=== PATIENT | male | born 1975 | race Caucasian/White ===

== ENCOUNTER 2016-12-19 09:17 | Inpatient (IN) | payer OTHER ==
--- NOTE | ~2016-12-19 | DS ---
Unit #: [id number] #: [id number] Patient: TAL DECKER [id number] [address] [place], [place] [address] [id number] MR#: [id number] NAME: TAL DECKER ROOM: 461 Age: 41 Sex: M Admission Date: 12/19/2016 : 1975 Discharge Date: 12/21/2016 Attending Physician: Silver Villa III, M.D. Primary Care Physician: Kendal Primary Care Physician DISCHARGE SUMMARY ADMITTING DIAGNOSIS Diverticulitis with microperforation. DISCHARGE DIAGNOSIS Diverticulitis with microperforation. CONSULTATIONS None. PROCEDURE PERFORMED None. BRIEF HOSPITAL COURSE This is a 41-year-old gentleman who is otherwise healthy. Presented with severe abdominal pain. He was started on IV antibiotics for diagnosis of diverticulitis with microperforation that was noted on CT scan. He rapidly improved and had normalization of his white count. He was advanced to clears, then a full liquid diet, and then low residue without any increase in pain. He was felt to be safe for discharge. DISPOSITION Discharge to home. FOLLOWUP My office will contact him in a couple of weeks to schedule colonoscopy. DISCHARGE MEDICATIONS He has been given a script for: 1. Levaquin. 2. Flagyl. DISCHARGE INSTRUCTIONS He has been instructed to call me if he has any worsening of his symptoms. We also discussed possible laparoscopic (1) assisted colon resection down the road. Dictated by... Silver Villa III, M.D. VCL/demond TD: 12/22/2016 08:59 Unit #: [id number] #: [id number] Patient: TAL DECKER JOB #: [id number] DISCHARGE SUMMARY Page 1 of 1 X Silver Villa III, MD X DISCHARGE SUMMARY
--- NOTE | ~2016-12-19 | CT2 ---
[facility] A Service of [facility] RADIOLOGY TEXT RESULTS PATIENT: TAL DECKER LOCATION: [place] [address] : [birth year] UNIT #: [id number] AGE: [address]: Silver Villa III, MD SEX: M ORDER DR: [id number] [facility] [address]. [place], [place] [address] [id number] MR#: [id number] Acc #: [id number] NAME: TAL EDCKER : 1975 SEX: M STUDY DATE/TIME: 12/19/2016 12:36 UNIT: [place] ROOM: STUDY DESCRIPTION: CT Abd and Pelv W Cont Attending Physician: Sudhir Alegria M.D. Ordering Physician: Sudhir Alegria M.D. Primary Care Physician: Primary Care Physician No MEDICAL IMAGING REPORT This report is preliminary unless electronic signature is present EXAM CT abdomen and pelvis 12/19/2016 INDICATION Left lower quadrant abdominal pain that started 12/16/2016. TECHNIQUE Axial images were obtained through the abdomen and pelvis following IV contrast administration. Multiplanar reformats were obtained. No comparison. This CT examination was performed with one or more of the following radiation dose reduction techniques: automatic exposure control, adjustment of mA and/or kV according to patient size, and iterative reconstruction. FINDINGS ABDOMEN: Lung bases are clear except for minimal right lower lobe atelectasis. Gallbladder is unremarkable. There is no biliary obstruction. Solid organs are normal. The unopacified GI tract is normal. No free fluid is seen. There is no adenopathy. PELVIS: The appendix is surgically absent. The distal small bowel is normal. The sigmoid colon is abnormal. There is diffuse wall thickening compatible with sigmoid colitis. This appears to be secondary to acute diverticulitis that has apparently perforated. There is a gas collection in the left lower quadrant separate from the bowel with fairly intense adjacent fat stranding. No drainable abscess is seen at this time. Urinary bladder is decompressed but grossly normal. IMPRESSION 1. Acute diverticulitis involving the sigmoid colon with subsequent fairly diffuse inflammation in the sigmoid. Additionally, there is evidence of perforation with a contained gas collection in the left STS. [facility] A Service of [facility] RADIOLOGY TEXT RESULTS PATIENT: TAL DECKER LOCATION: [facility] [id number] : [birth year] UNIT #: [id number] AGE: [address]: Silver Villa III, MD SEX: M ORDER DR: lower quadrant of the pelvis with intense adjacent fat stranding. No drainable fluid collection is seen at this time. The rest of the GI tract is normal except for changes of appendectomy. 2. The remainder of the abdomen and pelvis CT is within normal limits. Dictated by... Gallo Bassett Jr., M.D. THIS IS AN ELECTRONICALLY VERIFIED REPORT Gallo Bassett Jr., M.D. at 12/19/2016 4:48 PM BRY/kristy TD: 12/19/2016 14:12 JOB #: [id number] MEDICAL IMAGING REPORT Page 1 of 1 COPY
--- NOTE | ~2016-12-19 | HP ---
Unit #: [id number] #: [id number] Patient: TAL DECKER [id number] [address] [place], [place] [address] [id number] MR#: [id number] NAME: TAL DECKER ROOM: 461 Age: 41 Sex: M Admission Date: 12/19/2016 : 1975 Attending Physician: Silver Villa III, M.D. Primary Care Physician: No Primary Care Physician HISTORY AND PHYSICAL CHIEF COMPLAINT Abdominal pain. HISTORY OF PRESENT ILLNESS This is a 41-year-old gentleman who has had some left lower quadrant pain and fevers since Sunday. He has had no change in bowel habits. He denies any prior episodes. He states that the pain was worse yesterday and is slightly better today. PAST MEDICAL HISTORY Negative. PAST SURGICAL HISTORY He had an open appendectomy 20 years ago. SOCIAL HISTORY He does smoke one pack of cigarettes per day and drinks approximately a six pack of beer per day. FAMILY HISTORY Heart disease. ALLERGIES No known drug allergies. MEDICATIONS He is on no medications. REVIEW OF SYSTEMS Negative for fevers, weight loss of jaundice, otherwise, as above. PHYSICAL EXAMINATION GENERAL APPEARANCE: He is in no acute distress. VITAL SIGNS: Temperature 98.6. Heart rate is 94. Respiratory rate 16. Blood pressure 136/88. HEENT: Pupils are equal, reactive to light and accommodation. His extraocular muscles are intact. NECK: Without masses or bruits. LUNGS: Good breath sounds bilaterally with equal air exchange. CARDIAC: Regular rate and rhythm without murmur. ABDOMEN: Soft, nondistended and he has 2+ left lower quadrant tenderness. There are no peritoneal signs. EXTREMITIES: Without edema or cyanosis. Unit #: [id number] #: [id number] Patient: TAL DECKER NEUROLOGIC: He is alert and oriented. There is no focal deficits. DIAGNOSTIC STUDIES LABORATORY: WBC count 13,000. IMAGING: CT scan showed diverticulitis with a microperforation. IMPRESSION This is a 41-year-old gentleman who has acute diverticulitis with a microperforation. He seems like a good candidate for IV antibiotics, observation. I discussed interval colonoscopy as an outpatient plus or minus laparoscopic colon resection at a later date. Dictated by Silver Villa III, M.D. VCL/bd TD: 12/20/2016 06:57 JOB #: [id number] HISTORY AND PHYSICAL Page 1 of 1 X Silver Villa III, MD X HISTORY AND PHYSICAL
[2016-12-19 10:18] LABS: BASOPHIL# 0.1 X10e3 (0-0.3); BASOPHIL% 0.5 % (0-2.5); EOSINOPHIL# 0.1 X10e3 (0-0.7); EOSINOPHIL% 0.4 % (0.0-7.0); HEMATOCRIT 41.7 % (38.0-50.0); HEMOGLOBIN 14.2 gm/dL (13.0-16.0); LYMPHOCYTE# 1.5 X10e3 (1.0-3.5); LYMPHOCYTE% 11.5 % (17.0-45.0); MEAN CELL VOLUME 93.8 FL (83-96); MEAN CORPUSCULAR HGB CONC 34.1 g/dL (30-36); MEAN PLATELET VOLUME 8.2 FL (6.5-11.5); MONOCYTE# 0.7 X10e3 (0-1.0); MONOCYTE% 5.4 % (3.0-12.0); NEUTROPHIL# 10.8 X10e3 (1.5-7.1); NEUTROPHIL% 82.2 % (40-75); PLATELET COUNT 188 X10e3 (140-420); RED BLOOD COUNT 4.45 X10e (3.90-5.60); RED CELL DISTRIBUTION WIDTH 13.9 % (11.0-15.5); WHITE BLOOD COUNT 13.2 X10e3 (4.0-10.5)
[2016-12-19 10:22] LABS: DIFF IND NO
[2016-12-19 10:51] LABS: ALBUMIN SERUM 3.7 g/dL (3.5-5.0); BILIRUBIN, DIRECT 0.3 mg/dL (0.0-0.2); BILIRUBIN,INDIRECT 0.8 mg/dL (0.0-0.9); BILIRUBIN,TOTAL 1.1 mg/dL (0.2-2.0); BUN/CREATININE RATIO 8.88; CALCIUM SERUM 8.8 mg/dL (8.4-10.2); CREATININE SERUM 0.9 mg/dL (0.6-1.4); GLOM FILT RATE Estimated 104.2 mL/min (>60); POTASSIUM 3.5 mmol/L (3.5-5.1); PROTEIN TOTAL SERUM 7.5 g/dL (6.0-8.3)
[2016-12-19 11:10] LABS: URINE SOURCE CLEAN CATCH
[2016-12-19 11:16] LABS: URINE APPEARANCE CLEAR; URINE COLOR DK YELLOW; URINE GLUCOSE NEG (NEG); URINE KETONE NEG (NEG); URINE LEUKOCYTE ESTERASE TRACE (NEG); URINE NITRATE NEG (NEG); URINE PH 6.5 (5-8); URINE PROTEIN 1+ (NEG); URINE SPECIFIC GRAVITY 1.026 (1.003-1.035)
[2016-12-19 11:17] LABS: U HYALINE CASTS AUWI 0-2 /[LPF]; URBCS1 AUWI 0-2 /[HPF] (0-2); URINE BACTERIA AUWI NEG (NEGATIVE); URINE SQUAMOUS EPITHELIAL CELL NONE SEEN /[HPF]; UWBCS1 AUWI 0-2 (0-5)
[2016-12-19 11:51] LABS: CULTURE INDICATED? NO
[2016-12-19 11:59] LABS: URINE BILIRUBIN NEG (NEG); URINE BLOOD NEG (NEG)
[2016-12-20 03:32] LABS: HEMATOCRIT 36.6 % (38.0-50.0); HEMOGLOBIN 12.6 gm/dL (13.0-16.0); MEAN CELL VOLUME 93.9 FL (83-96); MEAN CORPUSCULAR HEMOGLOBIN 32.3 PG (28-34); MEAN CORPUSCULAR HGB CONC 34.5 g/dL (30-36); MEAN PLATELET VOLUME 8.3 FL (6.5-11.5); RED BLOOD COUNT 3.9 X10e (3.90-5.60); RED CELL DISTRIBUTION WIDTH 13.6 % (11.0-15.5); WHITE BLOOD COUNT 9.2 X10e3 (4.0-10.5)
[2016-12-20 03:50] LABS: BUN/CREATININE RATIO 12.5; CALCIUM SERUM 8.5 mg/dL (8.4-10.2); CREATININE SERUM 0.8 mg/dL (0.6-1.4); GLOM FILT RATE Estimated 109.5 mL/min (>60); POTASSIUM 3.8 mmol/L (3.5-5.1)
[2016-12-21 03:19] LABS: HEMATOCRIT 35.4 % (38.0-50.0); HEMOGLOBIN 12.1 gm/dL (13.0-16.0); MEAN CELL VOLUME 93.3 FL (83-96); MEAN CORPUSCULAR HGB CONC 34.3 g/dL (30-36); MEAN PLATELET VOLUME 8.2 FL (6.5-11.5); RED BLOOD COUNT 3.79 X10e (3.90-5.60); RED CELL DISTRIBUTION WIDTH 13.6 % (11.0-15.5); WHITE BLOOD COUNT 6.4 X10e3 (4.0-10.5)
[2016-12-21] MEDS ORDERED: FLAGYL PO (14:59)
[2016-12-21] MEDS ORDERED: LEVAQUIN PO (14:59)
[2017-01-11] MEDS ORDERED: NO MEDICATIONS (16:22)
== END 2016-12-21 16:15 | disposition home or self-care (01) | DRG 392 ==
LOC: CED 09:17 → CEDOF 14:30 → C4C 14:45 → CED 14:45 → C4C 16:18 → CEDOF 16:18 → C4C 12-21 16:15
PROVIDERS: Emergency Medicine; Surgery
DX: K57.20 Diverticulitis of large intestine with perforation and abscess without bleeding (principal); F10.10 Alcohol abuse, uncomplicated; Z90.49 Acquired absence of other specified parts of digestive tract; F17.210 Nicotine dependence, cigarettes, uncomplicated; Z82.49 Family history of ischemic heart disease and other diseases of the circulatory system
CPT/HCPCS: 36415; 74177; 80048; 80076; 81003; 82150; 83690; 85025; 85027; 96361; 96374; 99285; J1335; J1885; J2270; Q9967

== ENCOUNTER → 2017-01-23 | Day surgery (SDC) | payer OTHER ==
[~2017-01-23] MED LIST: FLAGYL PO; LEVAQUIN PO; NO MEDICATIONS
--- NOTE | ~2017-01-23 | OR ---
Unit #: [id number] #: [id number] Patient: TAL DECKER [id number] [address] [address] [id number] MR#: [id number] NAME: TAL DECKER ROOM: Date of Procedure: 01/23/2017 Admission Date: 01/23/2017 Surgeon: Silver Villa III, M.D. : 1975 Attending Physician: Silver Villa III, M.D. Referring Physician: Silver Villa III, M.D. Primary Care Physician: Primary Care Physician No OPERATIVE REPORT PREOPERATIVE DIAGNOSIS History of diverticulitis. POSTOPERATIVE DIAGNOSIS Mild sigmoid diverticulosis. PROCEDURE PERFORMED Colonoscopy to cecum. ANESTHESIA MAC. SPECIMENS None. COMPLICATIONS None apparent. INDICATIONS FOR PROCEDURE This is a 41-year-old gentleman, who had a recent hospitalization for diverticulitis with microperforation. He responded to IV antibiotics and nonoperative management. He has completed oral antibiotics since having no symptoms at this time. He is here today for colonoscopy. DESCRIPTION OF PROCEDURE After consent was obtained, the patient was brought to the endoscopy suite and placed in the left lateral decubitus position. We titrated the above sedation and I performed a rectal exam and did not feel any masses. The scope was placed within the rectal vault. Air was insufflated and I navigated the scope all the way to the cecum without any difficulty. He had normal mucosa. No evidence of any polyps or masses. He did have mild sigmoid diverticular disease consistent with his prior presentation. The scope was retroflexed within the rectum. No other masses were seen. The scope was then carefully withdrawn. I will discuss options of either holding off on any further treatment and modifying his diet with transitioned to a high-fiber diet and avoid large seeds and large nuts. We have also in the past discussed hand assisted laparoscopic colon resection and certainly given the minimal endoscopic findings at this time, we may proceed with conservative measures. Dictated by... Unit #: [id number] #: [id number] Patient: TAL DECKER Silver Villa III, M.D. VCL/leonel TD: 01/23/2017 22:55 JOB #: [id number] OPERATIVE REPORT Page 1 of 1 X Silver Villa III, MD PROCEDURE OPERATIVE NOTE
== END | disposition home or self-care (01) ==
LOC: COPS 06:11
DX: K57.30 Diverticulosis of large intestine without perforation or abscess without bleeding (principal); Z87.19 Personal history of other diseases of the digestive system; F17.200 Nicotine dependence, unspecified, uncomplicated
CPT/HCPCS: J2250